=== PATIENT | male | born 1985 | race Caucasian/White ===

== ENCOUNTER 2021-05-25 11:38 | Emergency (ER) | payer OTHER, SELFPAY ==
[2021-05-25 11:45] VITALS: BP 139/77; PULSE 63; RESP 16; TEMP 37.1; O2SAT 99
--- NOTE | 2021-05-25 11:53 | ED.URI ---
HPI - URI/Sore Throat General Chief Complaint: Upper Respiratory Infection Stated Complaint: Sinus pressure and ear pain Time Seen by Provider: 05/25/21 11:53 Source: patient Mode of arrival: ambulatory Limitations: no limitations History of Present Illness HPI Narrative: Mr. Phillips is a 36-year-old male patient presenting to the clinic today with complaints of bilateral ear pain and congestion x2 weeks. He reports this has been a on again off again pain for approximately 1 year. He has not seen any other providers for this problem. He denies any fever or chills. He denies any known exposure to anyone with Covid or influenza. No one else in the family is ill MD elicited complaint: nasal congestion and other (Bilateral ear pain) Related Data Allergies Allergy/AdvReac Type Severity Reaction Status Date / Time No Known Allergies Allergy Unverified 09/14/15 12:10 Review of Systems Review of Systems: Pertinent positives per HPI. Patient denies any fever, chills, rash, headache, visual changes, dizziness, cough, shortness of breath, chest pain, palpitations, nausea, vomiting, diarrhea, constipation, abdominal pain, or any urinary issues. PMFSH Comments At the time of my signature, I reviewed and agree with the nursing past medical, surgical, social, and family history. There is no relevant family history pertinent to the patient complaint. Exam Narrative: General: Well-developed, well nourished, in no apparent distress Head: Normocephalic, atraumatic Eyes: Pupils equally round and reactive to light bilaterally, EOM intact, sclera and conjunctive clear, no discharge, lids normal Ears: TMs intact, dull, and bulging, ear canals clear, no drainage, grossly hearing normal. Nose: Nares patent, no nasal discharge, mild to moderate inflammation, no sinus tenderness. Mouth: Oral pharynx without lesions or masses, good dentition, MMM. Postnasal drip Neck: Supple, trachea midline, no enlargement of anterior or posterior cervical nodes, no thyroid masses or goiter palpable. Cardio: Regular rate and rhythm, s1 and s2 normal, no murmur appreciated. Resp: Clear to auscultation bilaterally, no rhonchi, rales, wheezing or rubs Course Course Emergency Course: Portions of this record may have been created with voice recognition software. Level of Care: Express Care Visit Vital Signs Vital signs: Vital Signs Temperature 37.1 C 05/25/21 11:45 Pulse Rate 63 05/25/21 11:45 Respiratory Rate 16 05/25/21 11:45 Blood Pressure 139/77 05/25/21 11:45 Pulse Oximetry 99 05/25/21 11:45 Temperature 37.1 C 05/25/21 11:45 Pulse Rate 63 05/25/21 11:45 Respiratory Rate 16 05/25/21 11:45 Blood Pressure 139/77 05/25/21 11:45 Pulse Oximetry 99 05/25/21 11:45 Vital signs reviewed MDM - URI/Sore Throat Differential Diagnosis Differential diagnosis: Likely sinusitis, viral infection, influenza and pharyngitis Discharge Plan Discharge Clinical Impression: Acute dysfunction of both eustachian tubes, Upper respiratory infection Patient Disposition: Home, Self-Care Condition: Stable Instructions: Cold Symptoms (ED), Earache (ED) Additional Instructions: Prednisone as directed Take prescription medications only as prescribed Increase fluids and stay well hydrated Tylenol/motrin for pain/fever Flonase and OTC antihistamines as directed Vicks vapor rub to open sinuses Sinus rinses for congestion Cepacol spray, cough drops, throat lozenges, warm tea with honey/lemon, gargle salt water to soothe throat BRAT diet for diarrhea Clear liquids x 24 hours then advance as tolerated for nausea/vomiting May return to the clinic if symptoms worsen Go to the ED if you develop dehydration, weakness, lethargy, shortness of breath, or chest pain. Follow up with your PCP in 3-5 days if symptoms persist. Prescriptions: New prednisone 20 mg tablet 40 mg PO DAILY 5 Days Qty: 10 RF: 0 Foll
== END 2021-05-25 12:07 | disposition home or self-care (01) ==
PROVIDERS: Emergency Provider Nurse Practitioner Family
DX: H69.93 Unspecified Eustachian tube disorder, bilateral (principal); J06.9 Acute upper respiratory infection, unspecified
CPT/HCPCS: 99203; G0463

== ENCOUNTER 2021-10-17 16:20 | Emergency (ER) | payer OTHER, SELFPAY ==
[2021-10-17 16:26] VITALS: BP 130/79; PULSE 64; RESP 16; TEMP 36.6; O2SAT 100
--- NOTE | 2021-10-17 16:38 | ED.SKABFB ---
HPI - Skin/Abscess/Foreign Bdy General Chief complaint: Skin/Abscess/Foreign Body Stated complaint: Rash Time Seen by Provider: 10/17/21 16:38 Source: patient Mode of arrival: ambulatory Limitations: no limitations History of Present Illness HPI narrative: 36-year-old male presented for complaint of rash to the left anterior marcus spreading to the calf over the last 3 days. Also small area to posterior right knee. He endorses cutting grass while wearing shorts and noticed the itching subsequently. He denies lip, tongue, throat swelling or itching, difficulty breathing dizziness or nausea. Has been taking benadryl for symptoms and applied Aquaphor. complaint: rash Related Data Allergies Allergy/AdvReac Type Severity Reaction Status Date / Time No Known Allergies Allergy Unverified 09/14/15 12:10 Review of Systems Review of Systems: CONSTITUTIONAL: Denies body aches, fever, chills, or sweats. EYES: Denies visual changes, redness, or discharge. ENT: Denies rhinorrhea, congestion, sore throat, or otalgia. CARDIOVASCULAR: Denies chest pain, palpitations, or edema. RESPIRATORY: Denies cough or dyspnea. GASTROINTESTINAL: Denies abdominal pain, nausea, vomiting, or diarrhea. SKIN: reports rash, itching MUSCULOSKELETAL: Denies back pain, joint pain, or myalgia. NEUROLOGIC: Denies headache, numbness, tingling, or weakness. PMFSH Comments At time of signature, I have reviewed and agree with nursing past medical, surgical, social and family history unless otherwise noted. Please see nursing chart for further information. There is no relevant family history pertinent to the presenting complaint Exam Narrative: GENERAL: Well-appearing EYES: conjunctivae clear, and EOMI. ENT: Mucous membranes moist. Oropharynx without edema, erythema or lesions. CHEST: Clear to auscultation. HEART: Regular rate and rhythm. SKIN: Warm, dry. Patches of erythematous nontender vesicles to left marcus approx 4cm x3m, left calf approx [id number], and right posterior knee scattered nontender vesicles c/w contact dermatitis NEURO: Alert and oriented x3. PSYCH: Normal mood and affect Course Course Emergency Course: Patient is aware of diagnosis, understands and agrees to treatment plan. Anticipatory guidance given. Patient agrees to follow-up as directed and is aware of reasons to seek care at the emergency department. Portions of this record may have been created with voice recognition software Level of Care: Express Care Visit Vital Signs Vital signs: Vital Signs Temperature 97.8 F 10/17/21 16:26 Pulse Rate 64 10/17/21 16:26 Respiratory Rate 16 10/17/21 16:26 Blood Pressure 130/79 10/17/21 16:26 Pulse Oximetry 100 10/17/21 16:26 Oxygen Delivery Room Air 10/17/21 16:26 Temperature 97.8 F 10/17/21 16:26 Pulse Rate 64 10/17/21 16:26 Respiratory Rate 16 10/17/21 16:26 Blood Pressure 130/79 10/17/21 16:26 Pulse Oximetry 100 10/17/21 16:26 Oxygen Delivery Room Air 10/17/21 16:26 Reviewed MDM - Skin/Abscess/Foreign Bdy MDM Narrative Medical decision making narrative: Instructed patient to go to nearest ER immediately for any worsening symptoms including but not limited to: fever, spreading rash, pain, sore throat, headache, dizziness, chest pain, trouble breathing, or any symptoms concerning to the patient. Differential Diagnosis Differential diagnosis: Likely abscess of skin or subcutaneous tissue, urticaria, herpes zoster, cellulitis and contact dermatitis Discharge Plan Discharge Clinical Impression: Contact dermatitis Patient Disposition: Home, Self-Care Condition: Stable Instructions: Antibiotic Form Additional Instructions: Take the steroid and pepcid prescriptions as directed Take Benadryl every 6-8 hours as needed for itching. Cool compresses to the sites of itching, avoid hot water/showers etc Avoid itching to prevent skin infections. Follow up with your primary care p
== END 2021-10-17 16:48 | disposition home or self-care (01) ==
PROVIDERS: Emergency Provider Nurse Practitioner Family
DX: L25.9 Unspecified contact dermatitis, unspecified cause (principal)
CPT/HCPCS: 99213; G0463

== ENCOUNTER 2023-02-16 14:44 | Emergency (ER) | payer OTHER, SELFPAY ==
[2023-02-16 14:48] VITALS: BP 135/75; PULSE 88; RESP 18; TEMP 36.8; O2SAT 99
--- NOTE | 2023-02-16 14:48 | ED.URI ---
HPI - URI/Sore Throat General Chief Complaint: Upper Respiratory Infection Stated Complaint: Nausea,Diarrhea,Chills,Sweats,Shortness of Breath Time Seen by Provider: 02/16/23 14:56 Source: patient, RN notes reviewed and old records reviewed Mode of arrival: ambulatory Limitations: no limitations History of Present Illness HPI Narrative: 38-year-old male presents to the [facility] with nausea, 6 episodes of diarrhea since this morning. Reports abdominal cramping just before he uses the bathroom. Denies any significant abdominal pain No treatment prior to arrival Onset (ago): hour(s) Related Data Home Medications Medication Instructions Recorded Confirmed dextroamphetamine-amphetamine 10 02/16/23 mg tablet sertraline 50 mg tablet mg 02/16/23 Allergies Allergy/AdvReac Type Severity Reaction Status Date / Time No Known Allergies Allergy Unverified 09/14/15 12:10 Review of Systems Review of Systems: All systems reviewed & are unremarkable except as noted in HPI and below Constitutional: Constitutional: Reports no additional constitutional complaints Eyes: Eyes: Reports no additional eye complaints ENT: Reports system reviewed and no additional complaints, except as documented Cardiovascular: Cardiovascular: Reports no additional cardiovascular complaints, Denies chest pain and Denies dyspnea Respiratory: Respiratory: Reports no additional respiratory complaints, Denies chest congestion, Denies cough and Denies dyspnea Gastrointestinal: Gastrointestinal: Reports as per HPI, Denies abdominal pain, Reports diarrhea, Denies nausea and Denies vomiting Musculoskeletal: Musculoskeletal: Reports no additional musculoskeletal complaints Integumentary/Breasts: Skin/Breast: Reports system reviewed and no additional complaints, except as docu Neurologic: Reports system reviewed and no additional complaints, except as documented Psychiatric: Psychiatric: Reports no additional psychiatric complaints Allergic/Immunologic: Allergic/Immunologic: Reports no additional allergic/immunologic complaints PMFSH Comments At the time of my signature, I reviewed and agree with the nursing past medical, surgical, social, and family history. There is no relevant family history pertinent to the patient complaint. Exam Const: General: cooperative, healthy appearing, comfortable, no acute distress, well developed, alert and well nourished Nutritional Appearance: well nourished Orientation/consciousness: patient oriented x3 Limitations: no limitations HENMT: Head: normal to inspection Ears: hearing grossly normal bilaterally and external ears normal Face/Nose/Sinus: Normal external nose present, Normal nares present, Normal nasal mucous membranes and turbinates present, normal facial exam and face symmetric Face and sinus: normal facial exam and face symmetric Mouth: Yes Normal oral and palatal mucosa present, Yes lip normal and Yes moist mucous membranes Throat: posterior oropharynx normal and uvula midline Eyes: General: appearance normal, both eyes and all related structures Alignment and Position: alignment normal Periorbital: periorbital findings normal Pupils: Equal, round and reactive pupils present EOM: EOMs intact bilaterally Neck: Neck: normal visual inspection, full ROM, no lymphadenopathy and no meningeal signs Chest: Chest palpation & inspection: normal inspection of the chest Resp: Effort & Inspection: normal respiratory effort and able to speak in complete sentences Auscultation: clear to auscultation bilaterally, no crackles, no rales, no rhonchi and no wheezes Cardio: Rate: regular rate Rhythm: regular rhythm GI: GI Palp: No abdominal tenderness and Yes Soft to palpation Auscultation: normal bowel sounds : General: Yes no CVA tenderness Back/Spine/Pelvis: Cervical Spine: cervical ROM normal Skin: General skin exam: normal color and no rashes or lesions noted Lesions: no lesions Rashes: no rashe
== END 2023-02-16 15:12 | disposition home or self-care (01) ==
PROVIDERS: Emergency Provider Nurse Practitioner; PCP Family Medicine
DX: R19.7 Diarrhea, unspecified (principal)
CPT/HCPCS: 99211; G0463

== ENCOUNTER 2023-03-06 18:52 | Emergency (ER) | payer OTHER, SELFPAY ==
[2023-03-06 19:01] VITALS: BP 160/82; PULSE 90; RESP 16; TEMP 37.3; O2SAT 97
--- NOTE | 2023-03-06 19:02 | ED.SKABFB ---
HPI - Skin/Abscess/Foreign Bdy General Chief complaint: Skin/Abscess/Foreign Body Stated complaint: Belly button leaking Time Seen by Provider: 03/06/23 19:02 Source: patient and RN notes reviewed Mode of arrival: ambulatory Limitations: dementia History of Present Illness HPI narrative: 38-year-old male presents with concern of for drainage from his umbilicus. He reports he has some tenderness yesterday and noticed today there was some drainage. He reports he was hospitalized a week and a half ago for pancreatitis. He denies any open wounds. Denies any fever, aches, chills, sweats, abdominal lumps. MD complaint: other (Redness) Related Data Home Medications Medication Instructions Recorded Confirmed dextroamphetamine-amphetamine 10 02/16/23 mg tablet sertraline 50 mg tablet mg 02/16/23 Allergies Allergy/AdvReac Type Severity Reaction Status Date / Time No Known Allergies Allergy Unverified 09/14/15 12:10 Review of Systems Review of Systems: CONSTITUTIONAL: Denies malaise, chills, sweats, or fever. EYES: Denies redness, or discharge. ENT: Denies rhinorrhea, congestion, swollen lips, swollen tongue CARDIOVASCULAR: Denies chest pain, palpitations, or edema. RESPIRATORY: Denies cough or dyspnea. GASTROINTESTINAL: Denies abdominal pain, nausea, vomiting SKIN: Reports tenderness and mucousy drainage around the umbilicus. Denies vesicles, bullae, numbness, pain beyond proportion MUSCULOSKELETAL: Denies joint pain or myalgia. NEUROLOGIC: Denies headache. All systems reviewed & are unremarkable except as noted in HPI and below PMFSH Comments At time of signature, agree with nursing past medical, surgical, social and family history. There is no relevant family history pertinent to the presenting complaint Exam Narrative: GENERAL: Well-appearing, well-nourished, and in no acute distress. HEAD: Normocephalic, atraumatic. EYES: PERRLA, conjunctivae clear ENT: Mucous membranes moist. NECK: Supple. No lymphadenopathy CHEST: Clear to auscultation. No respiratory distress. HEART: Regular rate and rhythm. SKIN: Warm, dry. Tenderness and erythema surrounding the umbilicus approximately 2 cm in diameter without induration with sharp margins noted, serosanguineous drainage noted. No palpable abscess. No vesicles, bullae, necrosis, ecchymosis, crepitus noted. NEURO: Alert and oriented x3. PSYCH: Normal mood and affect Course Course Emergency Course: Patient is aware of diagnosis, understands and agrees to treatment plan. Anticipatory guidance given. Patient agrees to follow-up as directed and is aware of reasons to seek care at the emergency department. Portions of this record may have been created with voice recognition software Level of Care: Express Care Visit Vital Signs Vital signs: Reviewed. MDM - Skin/Abscess/Foreign Bdy MDM Narrative Medical decision making narrative: Does not appear at this time to be erythema multiforme, bullous, SJS, TEN; no evidence at this time to suggest RMSF, NSTI, endocarditis or Lyme disease; patient looks well, nontoxic and is tolerating oral intake; no neurologic signs or symptoms; no headache, photophobia or neck pain; afebrile. Patient does not have history of of penetrating trauma, laceration, blunt trauma, recent surgery, immunosuppression, malignancy, obesity, alcoholism, corticosteroid use. Discussed the importance of follow-up, patient agrees; question, cellulitis versus necrotizing soft tissue infection versus abscess. Critical Care Time Critical Care Time Critical Care Time: No Discharge Plan Discharge Clinical Impression: Cellulitis Patient Disposition: Home, Self-Care Condition: Stable Instructions: Antibiotic Form, Cellulitis (ED) Additional Instructions: Please follow up with your Primary Care Doctor within 48-72 hours - call for an appointment. Rest and elevate affected area; apply moist heat 3-4 times daily for 10-15 minutes. T
== END 2023-03-06 19:14 | disposition home or self-care (01) ==
PROVIDERS: Emergency Provider Nurse Practitioner; PCP Family Medicine
DX: L03.316 Cellulitis of umbilicus (principal)
CPT/HCPCS: 87070; 87075; 87205; 99213; G0463